=== PATIENT | female | born 1985 | race Caucasian/White ===

== ENCOUNTER 2018-01-17 11:38 | Day surgery (SDC) | payer MEDICAID ==
[2018-01-17] MEDS ORDERED: Oxymetazoline 0.05% Nasal Spray 15 ML Bottle ONE (12:46)
[2018-01-17] MEDS ORDERED: EPINEPHrine 1 MG/ML SDV ONE (12:46)
[2018-01-17] MEDS ORDERED: Ciprofloxacin/Dexamethasone 0.3-0.1% Otic Susp 7.5 ML Bottle ONE (12:46)
[2018-01-17] MEDS ORDERED: Ondansetron 4 MG/2 ML SDV ONE (13:12)
[2018-01-17] MEDS ORDERED: Lidocaine 2% 5 ML SDV ONE (13:12)
[2018-01-17] MEDS ORDERED: Rocuronium 10 MG/ML 10 ML Syringe ONE (13:12)
[2018-01-17] MEDS ORDERED: fentaNYL 250 MCG/5 ML SDV ONE (13:13)
[2018-01-17] MEDS ORDERED: Propofol 200 MG/20 ML SDV ONE (13:13)
[2018-01-17] MEDS ORDERED: Midazolam 1 MG/ML 2 ML SDV ONE (13:13)
[2018-01-17] MEDS ORDERED: Succinylcholine 200 MG/10 ML MDV ONE (13:15)
--- NOTE | 2018-01-17 13:19 | PCM.PREANE ---
Preanesthetic Assessment - Procedure Proposed Procedure: nasal bx and BMT - Anesthesia/Transfusion/Family Hx Anesthesia History: Prior Anesthesia Without Reaction Family History of Anesthesia Reaction: No Transfusion History: No Prior Transfusion(s) Intubation History: Unknown - Review of Systems General: Other Pulmonary: Other (swollen sinuses, ears and associated tissues) Other: Reports: None - Physical Assessment Height: 5 ft 1 in Weight: 241 lb ASA Class: 2 Mental Status: Alert & Oriented x3 Airway Class: Mallampati = 2 Dentition: Reports: Normal Dentition Thyro-Mental Finger Breadths: 3 Mouth Opening Finger Breadths: 3 ROM/Head Extension: Full Lungs: Clear to Auscultation, Normal Respiratory Effort Cardiovascular: Regular Rate, Regular Rhythm, No Murmurs - Lab Values: Laboratory Last Values Urine HCG, Qual NEGATIVE (NEGATIVE) 01/17/18 12:15 - Allergies Allergies/Adverse Reactions: Allergies Allergy/AdvReac Type Severity Reaction Status Date / Time acetaminophen Allergy swell/itch Verified 01/16/18 12:27 [From Tylenol-Codeine #3] codeine Allergy swell/itch Verified 01/16/18 12:27 [From Tylenol-Codeine #3] - Blood Blood Available: No Product(s) Available: None - Anesthesia Plan Pre-Op Medication Ordered: None - Acknowledgements Anesthesia Type Planned: General Anesthesia (OET) Pt an Appropriate Candidate for the Planned Anesthesia: Yes Alternatives and Risks of Anesthesia Discussed w Pt/Guardian: Yes Pt/Guardian Understands and Agrees with Anesthesia Plan: Yes PreAnesthesia Questionnaire HEENT History: Reports: Other (See Below) Other HEENT History: wears glasses Gastrointestinal History: Reports: GERD Genitourinary History: Reports: None [employer] History: Reports: Musculoskeletal History: Reports: Fracture Other Musculoskeletal History: hx fx wrist Endocrine/Metabolic History: Reports: Obesity/BMI 30+ - Past Surgical History Head Surgeries/Procedures: Reports: None Female Surgical History: Reports: Section - SUBSTANCE USE Smoking Status *Q: Current Every Day Smoker Tobacco Use Within Last Twelve Months: Cigarettes Recreational Drug Use History: No - HOME MEDS Home Medications: Home Meds . [No Known Home Meds] 01/16/18 [History] - CURRENT (IN HOUSE) MEDS Current Meds: Current Medications Discontinued Medications Ciprofloxacin/Dexamethasone (Ciprodex Otic Susp) Confirm Administered Dose 7.5 ml .ROUTE .STK-MED ONE Stop: 01/17/18 12:47 Epinephrine HCl (Adrenalin) Confirm Administered Dose 2 mg .ROUTE .STK-MED ONE Stop: 01/17/18 12:47 Fentanyl (Sublimaze) Confirm Administered Dose 250 mcg .ROUTE .STK-MED ONE Stop: 01/17/18 13:14 Lidocaine (Xylocaine-Mpf 2%) Confirm Administered Dose 5 ml .ROUTE .STK-MED ONE Stop: 01/17/18 13:13 Midazolam HCl (Versed 1 Mg/Ml) Confirm Administered Dose 2 mg .ROUTE .STK-MED ONE Stop: 01/17/18 13:14 Ondansetron HCl (Zofran) Confirm Administered Dose 4 mg .ROUTE .STK-MED ONE Stop: 01/17/18 13:13 Oxymetazoline HCl (Afrin Original 0.05% Nasal [place]) Confirm Administered Dose 15 ml .ROUTE .STK-MED ONE Stop: 01/17/18 12:47 Propofol (Diprivan 20 Ml) Confirm Administered Dose 200 mg .ROUTE .STK-MED ONE Stop: 01/17/18 13:14 Rocuronium [place] (Zemuron) Confirm Administered Dose 100 mg .ROUTE .STK-MED ONE Stop: 01/17/18 13:13
[2018-01-17] MEDS ORDERED: Albuterol 6.7 GM Inhaler INH ONE (13:32)
--- NOTE | 2018-01-17 14:21 | PCM.HPR ---
H & P Addendum review - H & P Addendum Review Date of Original H & P: 01/16/18 Date Reviewed: 01/17/18 Time Reviewed: 13:00 Patient was Examined: No Changes
--- NOTE | 2018-01-17 14:26 | PCM.OPNOTE ---
- General Post-Op/Procedure Note Date of Surgery/Procedure: 01/17/18 Condition: Good Free Text/Narrative:: Pre operative Diagnosis: Chronic R OME; Right nasopharyngeal fullness Post operative Diagnosis: Same Procedure: Bilateral Myringotomy with Tympanostomy tubes Surgeon: Yvonne Vieira MD Anesthesia: General Anesthesiologist: Marlene PATRICIO Date of procedure:01/17/2018 Indications: She presented to my office with history of right-sided otalgia reduced hearing. On clinical exam she was found to have right otitis media with effusion. Middle ear effusion seems to have persisted for several months and with the present symptoms a decision was made to schedule for the procedure. Due to unilateral middle ear effusion exam of post nasal space was performed in the office which showed exophytic mucosal fullness in region of right fossa of [place] - hence decision to perform nasopharyngeal biopsy was made. Findings: Right middle ear effusion-serous; exophytic mucosal fullness in the right fossa of [place] Operation Details: An informed consent for the procedure was obtained from parents. A time out was performed and the patient was brought back to the operating room and laid supine on the operating room table. Anesthesia was administered with an ET tube. The right ear was addressed. Cerumen was cleared from the external auditory canal. An anterior inferior myringotomy incision was made in the pars tensa. Findings are as described above. Middle ear effusion was suctioned clear. An Hu tympanostomy tube was placed with an alligator forceps. Ciprodex ear drops were instilled. A cotton wool wall was placed in the clint. Right nasal cavity was packed with cottonoid soaked in oxymetazoline. After appropriate period of decongestion the cottonoid was removed. The degree nasal endoscope was utilized to visualize the nasopharynx- findings as above. Biopsy was obtained and hemostasis was ensured. Concluded the procedure and patient was turned to anesthesia for recovery Specimens: None IV fluids: 300 ml Disposition: PACU for recovery Follow up: In 1 week
--- NOTE | 2018-01-17 15:05 | PCM48HPAN ---
Post Anesthesia Note - EVALUATION WITHIN 48HRS OF ANESTHETIC Vital Signs in Normal Range: Yes Patient Participated in Evaluation: Yes Respiratory Function Stable: Yes Airway Patent: Yes Cardiovascular Function Stable: Yes Hydration Status Stable: Yes Pain Control Satisfactory: Yes Nausea and Vomiting Control Satisfactory: Yes Mental Status Recovered: Yes Resp Rate: 12
--- NOTE | 2018-01-17 15:05 | PCM.POSTAN ---
POST ANESTHESIA ASSESSMENT - MENTAL STATUS Mental Status: Alert, Oriented - RESPIRATORY Respiratory Status: Respiratory Rate WNL, Airway Patent, O2 Saturation Stable - CARDIOVASCULAR CV Status: Pulse Rate WNL, Blood Pressure Stable - GASTROINTESTINAL GI Status: No Symptoms - POST OP HYDRATION Hydration Status: Adequate & Stable
== END 2018-01-17 15:26 ==
LOC: MW.SDS 11:38
PROVIDERS: ATTEND Otolaryngology
DX: H65.21 Chronic serous otitis media, right ear (principal); J35.2 Hypertrophy of adenoids; E66.9 Obesity, unspecified; Z68.42 Body mass index [BMI] 45.0-49.9, adult; F17.210 Nicotine dependence, cigarettes, uncomplicated
CPT/HCPCS: 42999; 69436; 81025; 88305; A9270; J0330; J2250; J2405; J2704; J3010; 00126; J0171